=== PATIENT | female | born 1985 | race Caucasian/White ===

== ENCOUNTER 2018-04-18 17:02 | Inpatient (IN) | payer MEDICAID ==
[2018-04-18] MEDS ORDERED: ONDANSETRON 4 MG INJ IV (17:30)
[2018-04-18] MEDS: LACTATED RINGER'S 1,000 ML IV ×2 (17:34→19:56)
[2018-04-18 17:51] LABS: ADD MAN DIFF? NO
[2018-04-18 17:55] LABS: WHITE BLOOD COUNT 17.4 10^3/ul (4.8-10.8)
[2018-04-18 17:55] LABS: BASOPHILS % 0.2 % (0.0-2.0); EOSINOPHILS # 0.3 10^3/ul (0.0-0.5); EOSINOPHILS % 1.7 % (0.0-7.0); HEMATOCRIT 25.8 % (37.0-47.0); HEMOGLOBIN 7.7 g/dl (12.0-16.0); LYMPHOCYTES # 3.5 10^3/ul (0.8-2.9); LYMPHOCYTES % 20.1 % (15.0-51.0); MEAN CORPUSCULAR HEMOGLOBIN 22.7 pg (29.0-33.0); MEAN CORPUSCULAR HGB CONC 29.8 g/dl (32.0-37.0); MEAN CORPUSCULAR VOLUME 76.1 fl (82.0-101.0); MEAN PLATELET VOLUME 8.7 fl (7.4-10.4); MONOCYTE # 1.4 10^3/ul (0.3-0.9); NEUTROPHIL # 11.8 10^3/ul (1.6-7.5); NEUTROPHILS % 68.1 % (39.0-77.0); PLATELET COUNT 308 10^3/UL (140-415); RED BLOOD COUNT 3.39 10^6/ul (4.20-5.40); RED CELL DISTRIBUTION WIDTH 16.1 % (11.5-14.5)
[2018-04-18 18:19] LABS: INR 1.02; PROTIME 13.5 Sec (11.9-14.9); PT RATIO 1.1
[2018-04-18 18:20] LABS: PARTIAL THROMBOPLASTIN TIME 27.5 Sec (23.0-35.0)
[2018-04-18 18:51] LABS: HEPATITIS B SURFACE ANTIGEN NEGATIVE (NEGATIVE)
[2018-04-18 19:25] LABS: RUPTURE FETAL MEMBRANES NEGATIVE (NEGATIVE)
[2018-04-19] MEDS: LACTATED RINGER'S 1,000 ML IV ×3 (03:32→18:53)
[2018-04-19 07:10] LABS: IRON 25 ug/dl (35-150)
[2018-04-19 07:20] LABS: % IRON SATURATION 5 % SAT (22-52); TOTAL IRON BINDING CAPACITY 516 ug/dl (241-421)
[2018-04-19 07:44] LABS: FERRITIN 5.6 ng/ml (6.2-137.0)
[2018-04-19] MEDS: PRENATAL VITAMIN PO (12:39)
[2018-04-19] MEDS: FERROUS SULFATE (EC) 325 MG TAB PO ×2 (12:39→20:57)
[2018-04-19 13:12] LABS: ADD UMIC NO; UR ASCORBIC ACID NEGATIVE (NEGATIVE); UR BILIRUBIN (Dip) NEGATIVE (NEGATIVE); UR BLOOD (Dip) NEGATIVE (NEGATIVE); UR CLARITY CLEAR (CLEAR); UR COLOR STRAW (YELLOW); UR GLUCOSE (Dip) NEGATIVE (NEGATIVE); UR KETONES (Dip) NEGATIVE (NEGATIVE); UR LEUKOCYTE ESTERASE (Dip) NEGATIVE Leu/ul (NEGATIVE); UR NITRITE (Dip) NEGATIVE (NEGATIVE); UR SPECIFIC GRAVITY (Dip) 1.005 (1.003-1.030); UR TOTAL PROTEIN (Dip) NEGATIVE (NEGATIVE); UR UROBILINOGEN (Dip) NEGATIVE (NEGATIVE)
[2018-04-19 13:30] LABS: ADD MAN DIFF? NO
[2018-04-19 13:33] LABS: BASOPHILS % 0.2 % (0.0-2.0); EOSINOPHILS # 0.3 10^3/ul (0.0-0.5); EOSINOPHILS % 1.9 % (0.0-7.0); HEMATOCRIT 24.8 % (37.0-47.0); HEMOGLOBIN 7.4 g/dl (12.0-16.0); LYMPHOCYTES # 2.5 10^3/ul (0.8-2.9); LYMPHOCYTES % 18.2 % (15.0-51.0); MEAN CORPUSCULAR HEMOGLOBIN 23.6 pg (29.0-33.0); MEAN CORPUSCULAR HGB CONC 29.8 g/dl (32.0-37.0); MEAN PLATELET VOLUME 9.2 fl (7.4-10.4); MONOCYTE # 1.1 10^3/ul (0.3-0.9); MONOCYTES % 8.1 % (0.0-11.0); NEUTROPHIL # 9.7 10^3/ul (1.6-7.5); NEUTROPHILS % 69.9 % (39.0-77.0); PLATELET COUNT 274 10^3/UL (140-415); RED BLOOD COUNT 3.14 10^6/ul (4.20-5.40); RED CELL DISTRIBUTION WIDTH 16.4 % (11.5-14.5)
[2018-04-19 13:33] LABS: WHITE BLOOD COUNT 13.9 10^3/ul (4.8-10.8)
[2018-04-19] MEDS: BETAMET NA PHOS/AC(6 MG/ML) 5ML INJ IM ×2 (13:38→18:53)
[2018-04-19] MEDS: DOCUSATE SODIUM 100 MG CAP PO (20:57)
[2018-04-20] MEDS: LACTATED RINGER'S 1,000 ML IV ×5 (02:00→23:38)
[2018-04-20 06:06] LABS: HEMATOCRIT 25.2 % (35.0-45.0); HEMOGLOBIN 7.6 g/dL (11.7-15.5); MCH 22.6 pg (27.0-33.0); MCV 74.8 fL (80.0-100.0); RDW 15.5 % (11.0-15.0); RED BLOOD CELL COUNT 3.37 Million/uL (3.80-5.10)
[2018-04-20] MEDS: PRENATAL VITAMIN PO (09:17)
[2018-04-20] MEDS: FERROUS SULFATE (EC) 325 MG TAB PO ×3 (09:17→21:22)
[2018-04-20] MEDS: BETAMET NA PHOS/AC(6 MG/ML) 5ML INJ IM (13:36)
[2018-04-20] MEDS: SOD FERRIC GLUC COMPLX 125 MG in SOD CHLORIDE 0.9% 100 ML IVPB (20:47)
[2018-04-20] MEDS: CYANOCOBALAMIN 1000 MCG INJ IM (20:47)
[2018-04-21 03:38] LABS: HEMOGLOBIN A 97.6 % (>96.0); HEMOGLOBIN A2 (QUANT) 2.4 % (1.8-3.5); HEMOGLOBIN F <1.0 % (<2.0)
[2018-04-21] MEDS: LACTATED RINGER'S 1,000 ML IV ×3 (06:05→17:51)
[2018-04-21] MEDS: DEXTROSE 5%-LR 1,000 ML IV ×2 (06:31→21:20)
[2018-04-21] MEDS ORDERED: PROPOFOL 200 MG INJ (07:00)
[2018-04-21] MEDS: FERROUS SULFATE (EC) 325 MG TAB PO ×3 (08:42→21:00)
[2018-04-21] MEDS: PRENATAL VITAMIN PO (08:42)
[2018-04-21 13:51] LABS: ABNORMAL IP MESSAGE 1; HEMATOCRIT 21.8 % (37.0-47.0); MEAN CORPUSCULAR HEMOGLOBIN 23.3 pg (29.0-33.0); MEAN CORPUSCULAR HGB CONC 30.3 g/dl (32.0-37.0); MEAN PLATELET VOLUME 8.9 fl (7.4-10.4); NUCLEATED RED BLOOD CELLS% 0.2 /100WBC (0.0-0.0); PLATELET COUNT 295 10^3/UL (140-415); RED BLOOD COUNT 2.83 10^6/ul (4.20-5.40); RED CELL DISTRIBUTION WIDTH 16.4 % (11.5-14.5)
[2018-04-21 13:51] LABS: WHITE BLOOD COUNT 26.9 10^3/ul (4.8-10.8)
[2018-04-21 14:09] LABS: ADD MAN DIFF? YES; HEMOGLOBIN 6.6 g/dl (12.0-16.0); INR 1.04; POSITIVE DIFF @See below; PROTIME 13.7 Sec (11.9-14.9); PT RATIO 1.1
[2018-04-21 14:10] LABS: PARTIAL THROMBOPLASTIN TIME 27.2 Sec (23.0-35.0)
[2018-04-21 14:43] LABS: ANISOCYTOSIS 2+ (0-0); BAND NEUTROPHILS #M 1.8 10^3/ul (0.0-0.6); BAND NEUTROPHILS % (M) 7 % (0-4); LYMPHOCYTES #M 1.3 10^3/ul (0.8-2.9); LYMPHOCYTES % (M) 5 % (15-51); METAMYELOCYTES #M 0.2 10^3/ul (0.0-0.0); METAMYELOCYTES %M 1 % (0-0); MICROCYTOSIS 2+ (0-0); MONOCYTES % (M) 4 % (0-11); MYELOCYTES % (M) 4 % (0-0); OVALOCYTES 1+ (0-0); PLATELET ESTIMATE NORMAL; POIKILOCYTOSIS 1+ (0-0); POLYCHROMASIA 3+ (0-0); SCHISTOCYTES 1+ (0-0); SEG NEUT #M 21.7 10^3/ul (1.6-7.5); SEGMENTED NEUTROPHILS (M) % 79 % (39-77); SMUDGE%M 6 % (0-0)
[2018-04-21] MEDS ORDERED: DIPHENHYDRAMINE 50 MG INJ IV ×2 (16:00)
[2018-04-21] MEDS ORDERED: hydrALAzine 20 MG INJ IV (16:00)
[2018-04-21] MEDS ORDERED: ZOLPIDEM 5 MG TAB PO (16:00)
[2018-04-21] MEDS ORDERED: KETOROLAC 30 MG INJ IV ×2 (16:00)
[2018-04-21] MEDS ORDERED: LEVALBUTEROL (NEB) 1.25 MG/0.5 ML AMP HHN (16:00)
[2018-04-21] MEDS ORDERED: IPRATROPIUM (NEB) 0.5 MG/2.5 ML AMP HHN (16:00)
[2018-04-21] MEDS ORDERED: NALOXONE (0.4 MG/ML) INJ IV (16:00)
[2018-04-21] MEDS ORDERED: FENTAnyl 50 MCG/ML VIAL IV ×2 (16:00)
[2018-04-21] MEDS ORDERED: LABETALOL HCL 20MG INJ IV (16:00)
[2018-04-21] MEDS ORDERED: HYDROmorphONE 0.5 MG/0.5 ML SYG IV ×2 (16:00)
[2018-04-21] MEDS ORDERED: ONDANSETRON 4 MG INJ IV (16:00)
[2018-04-21] MEDS ORDERED: HYDROmorphONE 1 MG/5 ML IV SYRINGE IV ×3 (16:00)
[2018-04-21] MEDS ORDERED: METOCLOPRAMIDE 10 MG INJ (16:24)
[2018-04-21] MEDS ORDERED: FAMOTIDINE 20 MG INJ (16:24)
[2018-04-21] MEDS ORDERED: morphine SULFATE/PF (10 MG/10 ML) INJ (16:28)
[2018-04-21] MEDS ORDERED: BUPIVACAINE 0.75%/DEXT (SPINAL) 2 ML INJ ×2 (16:28→17:46)
[2018-04-21] MEDS ORDERED: OXYTOCIN 10 UNIT INJ (16:29)
[2018-04-21] MEDS ORDERED: OXYTOCIN 30 UNITS/LR 500 ML IV ×2 (16:34→22:00)
[2018-04-21] MEDS: FAMOTIDINE 20 MG INJ IV (17:40)
[2018-04-21] MEDS: ONDANSETRON 4 MG INJ IV ×2 (17:40→21:27)
[2018-04-21] MEDS: METOCLOPRAMIDE 10 MG INJ IV (17:41)
[2018-04-21 17:49] LABS: IMMEDIATE SPIN CROSSMATCH 1 4
[2018-04-21] MEDS: SOD CHLORIDE 0.9% 1,000 ML IV (17:49)
[2018-04-21] MEDS: SOD FERRIC GLUC COMPLX 125 MG in SOD CHLORIDE 0.9% 100 ML IVPB ×2 (19:15→21:20)
[2018-04-21] MEDS: CEFAZOLIN 2 GM/50 ML (PMX) 50 ML IVPB (19:20)
[2018-04-21 21:13] LABS: ABNORMAL IP MESSAGE 1; MEAN CORPUSCULAR HEMOGLOBIN 25.5 pg (29.0-33.0); MEAN CORPUSCULAR HGB CONC 32.1 g/dl (32.0-37.0); MEAN CORPUSCULAR VOLUME 79.3 fl (82.0-101.0); MEAN PLATELET VOLUME 8.7 fl (7.4-10.4); NUCLEATED RED BLOOD CELLS% 0.4 /100WBC (0.0-0.0); PLATELET COUNT 223 10^3/UL (140-415); RED BLOOD COUNT 3.53 10^6/ul (4.20-5.40); RED CELL DISTRIBUTION WIDTH 17.6 % (11.5-14.5)
[2018-04-21 21:13] LABS: WHITE BLOOD COUNT 21.8 10^3/ul (4.8-10.8)
[2018-04-21 21:14] LABS: ADD MAN DIFF? YES; POSITIVE DIFF @See below
[2018-04-21 21:31] LABS: ALANINE AMINOTRANSFERASE 31 IU/L (13-69); ALBUMIN 2.3 g/dl (3.3-4.9); ALBUMIN/GLOBULIN RATIO 0.79; ALKALINE PHOSPHATASE 112 IU/L (42-121); ANION GAP 7 (5-13); ASPARTATE AMINO TRANSFERASE 42 IU/L (15-46); BILIRUBIN,INDIRECT 0.2 mg/dl (0-1.1); BILIRUBIN,TOTAL 0.2 mg/dl (0.2-1.3); BLOOD UREA NITROGEN 6 mg/dl (7-20); CARBON DIOXIDE 22 mmol/L (21-31); CHLORIDE 108 mmol/L (97-110); CREATININE 0.35 mg/dl (0.44-1.00); Estimated GFR > 60 mL/min (>60); GLUCOSE 102 mg/dl (70-220); POTASSIUM 3.4 mmol/L (3.5-5.1); SODIUM 137 mmol/L (135-144); TOTAL PROTEIN 5.2 g/dl (6.1-8.1)
[2018-04-21 21:32] LABS: INR 1.06; PROTIME 13.9 Sec (11.9-14.9); PT RATIO 1.1
[2018-04-21 21:34] LABS: PARTIAL THROMBOPLASTIN TIME 25.6 Sec (23.0-35.0)
[2018-04-21 21:43] LABS: ANISOCYTOSIS 2+ (0-0); BAND NEUTROPHILS #M 0.4 10^3/ul (0.0-0.6); BAND NEUTROPHILS % (M) 2 % (0-4); LYMPHOCYTES #M 1.9 10^3/ul (0.8-2.9); LYMPHOCYTES % (M) 9 % (15-51); METAMYELOCYTES #M 0.2 10^3/ul (0.0-0.0); METAMYELOCYTES %M 1 % (0-0); MICROCYTOSIS 2+ (0-0); MONOCYTE #M 0.4 10^3/ul (0.3-0.9); MONOCYTES % (M) 2 % (0-11); MYELOCYTES #M 0.8 10^3/ul (0.0-0.0); MYELOCYTES % (M) 4 % (0-0); PLATELET ESTIMATE NORMAL; POIKILOCYTOSIS 1+ (0-0); POLYCHROMASIA 3+ (0-0); SEGMENTED NEUTROPHILS (M) % 82 % (39-77); SMUDGE%M 3 % (0-0); TARGET CELLS 1+ (0-0)
[2018-04-21] MEDS ORDERED: LANOLIN 7 GM TUBE TOP (22:00)
[2018-04-21] MEDS ORDERED: CARBOPROST 250 MCG INJ IM (22:00)
[2018-04-21] MEDS ORDERED: METHYLERGONOVINE 0.2 MG INJ IM (22:00)
[2018-04-21] MEDS ORDERED: MISOPROSTOL 200 MCG TAB PR (22:00)
[2018-04-22] MEDS: OXYTOCIN 30 UNITS/LR 500 ML IV (00:19)
[2018-04-22] MEDS: LACTATED RINGER'S 1,000 ML IV (10:52)
[2018-04-22] MEDS ORDERED: OXYCODONE/ACETAMINOPHEN (5/325) TAB PO ×2 (16:15)
[2018-04-22] MEDS: IBUPROFEN 800 MG TAB PO (22:00)
[2018-04-23] MEDS: IBUPROFEN 800 MG TAB PO ×3 (05:48→22:03)
[2018-04-23 08:30] LABS: ADD MAN DIFF? NO
[2018-04-23 08:35] LABS: ABNORMAL IP MESSAGE 1; BASOPHIL # 0.1 10^3/ul (0.0-0.1); BASOPHILS % 0.4 % (0.0-2.0); EOSINOPHILS # 0.1 10^3/ul (0.0-0.5); EOSINOPHILS % 0.7 % (0.0-7.0); HEMATOCRIT 31.4 % (37.0-47.0); HEMOGLOBIN 9.8 g/dl (12.0-16.0); LYMPHOCYTES # 3.3 10^3/ul (0.8-2.9); MEAN CORPUSCULAR HEMOGLOBIN 25.4 pg (29.0-33.0); MEAN CORPUSCULAR HGB CONC 31.2 g/dl (32.0-37.0); MEAN CORPUSCULAR VOLUME 81.3 fl (82.0-101.0); MEAN PLATELET VOLUME 8.8 fl (7.4-10.4); MONOCYTE # 1.6 10^3/ul (0.3-0.9); MONOCYTES % 8.3 % (0.0-11.0); NEUTROPHIL # 13.2 10^3/ul (1.6-7.5); NEUTROPHILS % 68.6 % (39.0-77.0); NUCLEATED RED BLOOD CELLS% 0.1 /100WBC (0.0-0.0); PLATELET COUNT 247 10^3/UL (140-415); RED BLOOD COUNT 3.86 10^6/ul (4.20-5.40); RED CELL DISTRIBUTION WIDTH 19.1 % (11.5-14.5)
[2018-04-23 08:35] LABS: WHITE BLOOD COUNT 19.3 10^3/ul (4.8-10.8)
[2018-04-23 08:39] LABS: POSITIVE DIFF @See below
[2018-04-24] MEDS: IBUPROFEN 800 MG TAB PO ×3 (06:00→22:22)
[2018-04-24] MEDS: DIPHTH/TET/ACEL PERTUSS (ADULT) 0.5 ML VIAL IM* (09:29)
[2018-04-25] MEDS: IBUPROFEN 800 MG TAB PO ×2 (06:00→14:00)
== END 2018-04-25 14:40 | disposition home or self-care (01) | DRG 788 ==
LOC: L-D 17:02 → PP1 04-21 23:44
PROVIDERS: Obstetrics & Gynecology
PROC: 10D00Z1 Extraction of Products of Conception, Low, Open Approach (ICD-10-PCS; principal; 2018-04-21)
PROC: 30233N1 Transfusion of Nonautologous Red Blood Cells into Peripheral Vein, Percutaneous Approach (ICD-10-PCS; 2018-04-21)
DX: O41.02X0 Oligohydramnios, second trimester, not applicable or unspecified (principal); O99.02 Anemia complicating childbirth; D50.9 Iron deficiency anemia, unspecified; O36.5920 Maternal care for other known or suspected poor fetal growth, second trimester, not applicable or unspecified; O76 Abnormality in fetal heart rate and rhythm complicating labor and delivery; Z3A.26 26 weeks gestation of pregnancy; Z37.0 Single live birth
CPT/HCPCS: 36430; 76815; 76816; 76818; 80053; 81003; 82728; 83020; 83540; 84112; 85025; 85610; 85730; 86850; 86885; 86900; 86901; 86920; 87086; 87340; 88307; 90715; 99464